=== PATIENT | male | born 1955 | race Caucasian/White ===

== ENCOUNTER 2023-03-18 12:47 | Observation (INO) | payer MEDICARE ==
[2023-03-18] MEDS ORDERED: Sodium Chloride 0.9% 10 ML Syringe FLUSH PRN (12:49)
[2023-03-18 12:55] LABS: HEMOGLOBIN 13.6 g/dL (13.0-18.0); MEAN CORPUSCULAR HEMOGLOBIN 29.8 pg (27.0-32.0); MEAN CORPUSCULAR HGB CONC 33.2 g/dL (31.0-35.0); MEAN PLATELET VOLUME 11.2 fL (6.0-10.0); RED BLOOD CELL COUNT 4.56 M/uL (4.50-6.50); RED CELL DISTRIBUTION WIDTH 13.5 % (11.0-16.0); WHITE BLOOD CELL COUNT,WBC 9.4 K/uL (4.0-11.0)
[2023-03-18 13:12] LABS: PROTHROMBIN TIME 10.4 sec (9.0-11.5)
[2023-03-18 13:14] LABS: ALBUMIN 3.8 g/dL (3.4-5.0); ANION GAP 12.5 mmol/L (5.0-15.0); BILIRUBIN TOTAL 0.6 mg/dL (0.0-1.0); BUN/CREATININE RATIO 16.3 (6-25); CALCIUM 8.9 mg/dL (8.5-10.1); CARBON DIOXIDE,CO2 28.7 mmol/L (21.0-32.0); CREATININE 1.41 mg/dL (0.70-1.30); EST CRCL DRUG DOSING (CG) 47.84 mL/min; PHOSPHORUS 3.2 mg/dL (2.5-4.9); POTASSIUM,K 4.2 mmol/L (3.5-5.1); PROTEIN TOTAL,TP 7.5 g/dL (6.4-8.2)
[2023-03-18 13:15] LABS: TROPONIN I HIGH SENSITIVITY 8.2 pg/ml (<=60.4)
[2023-03-18] MEDS ORDERED: Aspirin 81 MG Tab.Chew PO ONE (13:16)
[2023-03-18] MEDS ORDERED: Clopidogrel 75 MG Tab PO ONE (13:34)
[2023-03-18] MEDS ORDERED: atorvaSTATin 40 MG Tab PO ONE (13:34)
[2023-03-18] MEDS ORDERED: Sodium Chloride 0.9% 1,000 ML IV SCH (13:45)
[2023-03-18] MEDS ORDERED: AZELASTINE HCL 137 MCG/0.137 ML NASBOTH SCH (20:00)
[2023-03-18] MEDS ORDERED: [UNRECOGNIZED DRUG - OTHER] EYELF SCH (20:00)
[2023-03-18] MEDS ORDERED: Brimonidine 0.2% Ophth Soln 5 ML Bottle EYELF SCH (20:00)
[2023-03-18] MEDS ORDERED: TIMOLOL MALEATE EYELF SCH (20:00)
[2023-03-18] MEDS ORDERED: Dorzolamide/Timolol 2%-0.5% Ophth Soln 10 ML Bottle EYELF SCH (20:00)
[2023-03-18] MEDS: Gabapentin 300 MG Cap PO SCH (20:30)
[2023-03-18] MEDS: DORZOLAMIDE EYELF SCH (20:31)
[2023-03-18] MEDS: TIMOLOL EYELF SCH (20:31)
[2023-03-18] MEDS: BRIMONIDINE 0.2% EYELF SCH (20:41)
[2023-03-18] MEDS ORDERED: Metoprolol Tartrate 25 MG Tab PO ONE (23:45)
[2023-03-19] MEDS ORDERED: Labetalol 100 MG/20 ML MDV IVPUSH SCH (00:45)
[2023-03-19] MEDS ORDERED: Labetalol 100 MG/20 ML MDV IVPUSH STA (00:47)
[2023-03-19] MEDS ORDERED: Metoprolol Tartrate 25 MG Tab PO STA (06:09)
[2023-03-19] MEDS ORDERED: Metoprolol Tartrate 25 MG Tab PO SCH (08:00)
[2023-03-19] MEDS: Latanoprost 0.005% Ophth Soln 2.5 ML Bottle EYELF SCH (08:00)
[2023-03-19] MEDS ORDERED: AZELASTINE NASBOTH SCH (08:00)
[2023-03-19] MEDS: FLUoxetine 20 MG Cap PO SCH (09:25)
[2023-03-19] MEDS: atorvaSTATin 20 MG Tab PO SCH (09:25)
[2023-03-19] MEDS: BRIMONIDINE 0.2% EYELF SCH ×2 (09:27→20:12)
[2023-03-19 09:52] LABS: HEMATOCRIT 42.4 % (40.0-54.0); HEMOGLOBIN 14.2 g/dL (13.0-18.0); MEAN CORPUSCULAR HEMOGLOBIN 29.8 pg (27.0-32.0); MEAN CORPUSCULAR HGB CONC 33.5 g/dL (31.0-35.0); RED BLOOD CELL COUNT 4.77 M/uL (4.50-6.50); RED CELL DISTRIBUTION WIDTH 13.4 % (11.0-16.0); WHITE BLOOD CELL COUNT,WBC 7.1 K/uL (4.0-11.0)
[2023-03-19 10:15] LABS: BUN/CREATININE RATIO 12.3 (6-25); CALCIUM 8.8 mg/dL (8.5-10.1); CREATININE 1.3 mg/dL (0.70-1.30); EST CRCL DRUG DOSING (CG) 55.37 mL/min; MAGNESIUM 1.8 mg/dL (1.8-2.4); PHOSPHORUS 3.4 mg/dL (2.5-4.9); POTASSIUM,K 4.2 mmol/L (3.5-5.1); TROPONIN I HIGH SENSITIVITY 7.9 pg/ml (<=60.4)
[2023-03-19 10:55] LABS: ANION GAP 12.4 mmol/L (5.0-15.0); CARBON DIOXIDE,CO2 26.8 mmol/L (21.0-32.0)
[2023-03-19] MEDS ORDERED: hydrALAZINE 20 MG/ML SDV IVPUSH ONE ×2 (11:24→17:06)
[2023-03-19] MEDS: Clopidogrel 75 MG Tab PO SCH (20:10)
[2023-03-19] MEDS: Gabapentin 300 MG Cap PO SCH (20:10)
[2023-03-19] MEDS: Metoprolol Tartrate 50 MG Tab PO SCH (20:10)
[2023-03-19] MEDS: AZELASTINE NASBOTH SCH (20:11)
[2023-03-19] MEDS: DORZOLAMIDE EYELF SCH (20:12)
[2023-03-19] MEDS: TIMOLOL EYELF SCH (20:12)
[2023-03-19] MEDS ORDERED: Acetaminophen 325 MG Tab PO PRN (20:43)
[2023-03-20] MEDS ORDERED: hydrALAZINE 20 MG/ML SDV IVPUSH ONE (06:19)
[2023-03-20] MEDS: BRIMONIDINE 0.2% EYELF SCH (07:38)
[2023-03-20] MEDS: Latanoprost 0.005% Ophth Soln 2.5 ML Bottle EYELF SCH (07:38)
[2023-03-20] MEDS: Clopidogrel 75 MG Tab PO SCH (07:39)
[2023-03-20] MEDS: AZELASTINE NASBOTH SCH (07:39)
[2023-03-20] MEDS: atorvaSTATin 20 MG Tab PO SCH (07:39)
[2023-03-20] MEDS: Metoprolol Tartrate 50 MG Tab PO SCH (07:40)
[2023-03-20] MEDS: FLUoxetine 20 MG Cap PO SCH (07:40)
[2023-03-20] MEDS ORDERED: Aspirin 81 MG Tab.EC PO SCH (08:00)
== END 2023-03-20 10:50 | disposition home or self-care (01) ==
LOC: LB.ED 12:47 → LB.MS 14:09
PROVIDERS: ADMIT Surgery; ATTEND Surgery
DX: G45.9 Transient cerebral ischemic attack, unspecified (principal); E55.9 Vitamin D deficiency, unspecified; F32.A Depression, unspecified; J44.9 Chronic obstructive pulmonary disease, unspecified; I10 Essential (primary) hypertension; N17.9 Acute kidney failure, unspecified; I45.2 Bifascicular block; Z91.011 Allergy to milk products; Z91.018 Allergy to other foods; Z79.899 Other long term (current) drug therapy; Z98.890 Other specified postprocedural states
CPT/HCPCS: 36415; 70450; 80048; 80053; 82947; 83735; 84100; 84484; 85027; 85379; 85610; 92507-GN; 92523-GN; 92610-GN; 93005; 93010; 96374; 96375; 96376; 99222; 99238; 99285; A9270-GY; G0378; J0360; J7030